=== PATIENT | female | born 1940 | race Caucasian/White ===

== ENCOUNTER 2018-12-01 06:21 | Day surgery (SDC) | payer MEDICARE, OTHER ==
[~2018-12-01] VITALS: Ht 167.6 cm; Wt 70.5 kg
[2018-12-01 06:47] LABS: HEMATOCRIT 34.9 % (36.0-48.0); HEMOGLOBIN 11.5 g/dL (12-16); MCH 30.7 pg (26.0-34.0); MCV 93.3 fL (80.0-100.0); MEAN PLATELET VOLUME 10.1 fL (7.4-10.4); RBC 3.74 10x6/uL (4.00-5.40); RDW 14.8 % (11.5-14.5); WBC 9.7 10x3/uL (4.8-10.8)
[2018-12-01] MEDS ORDERED: OMEPRAZOLE20 M1 PO (07:14)
[2018-12-01] MEDS ORDERED: KENALOG 0.1 % 115 GM TOPICAL (07:14)
[2018-12-01] MEDS ORDERED: LEXAPRO20 MG PO (07:14)
[2018-12-01] MEDS ORDERED: ZYLOPRIM100 MG PO (07:16)
[2018-12-01 07:39] VITALS: BP 131/68; Ht 167.6 cm; Wt 70.5 kg
--- NOTE | 2018-12-01 08:22 | NUR ---
0822-DILATE ESOPHAGUS WITH 18-20 CRE BALLOON.
--- NOTE | 2018-12-01 09:30 | NUR ---
0821 DR. BECCA POZO.
--- NOTE | 2018-12-01 09:39 | NUR ---
1649 DC INSTS REVIEWED VOICED UNDERSTANDING RELEASED IN WC WITH ESCORT.
--- NOTE | 2018-12-01 17:26 | OP ---
PATIENT NAME: SHO GUTHRIE MEDICAL RECORD: [id number] :39 LOCATION:[facility] ADMISSION DATE: SURGEON: KASIA HUDSON DO DATE OF OPERATION: 12/01/2018 PROCEDURE: EGD with balloon dilation and biopsies. INDICATIONS FOR PROCEDURE: Possible history of achalasia, dysphagia, heartburn. SCOPE: Olympus video gastroscope. MEDICATIONS: Propofol 200 mg IV per anesthesia. ESTIMATED BLOOD LOSS: Minimal. COMPLICATIONS: None. FINDINGS AND DESCRIPTION OF PROCEDURE: Informed consent was given. The patient was made comfortable with the above medication. After reaching an adequate level of sedation by slow IV push, the patient was placed on her left side. The endoscope was advanced under direct visualization through the mouth to the second portion of the duodenum with ease. The upper and middle thirds of the esophagus appeared normal. In the distal esophagus, there was evidence of LA class A reflux-induced esophagitis and a Schatzki's ring just proximal to a large mixed sliding and paraesophageal hernia, which measured approximately 9 cm in length. Involved with this hernia, there was a significant amount of food caught within the hernia itself and refluxing up into the esophagus. The endoscope was advanced beyond the hernia into the stomach, which appeared normal down to the antrum and pylorus. Random cold forceps biopsies were taken to submit for histopathology and to rule out the presence of H. pylori. The endoscope was advanced beyond the pylorus into the duodenum, which appeared normal down to the second portion. The endoscope was then withdrawn back into the stomach and an 18-20 mm CRE dilating balloon was placed through the working channel. The endoscope was withdrawn into the esophagus and the balloon was placed across the Schatzki's ring. It was dilated up to 20 mm maximum diameter successfully. The endoscope was then withdrawn from the patient. The patient tolerated the procedure well and there were no complications. IMPRESSION: 1. LA class A reflux-induced esophagitis. 2. Schatzki's ring located at the GE junction, proximal to a hiatal hernia, dilated to 20 mm successfully. 3. Approximately 9 cm mixed hiatal hernia with significant food retention. PLAN AND RECOMMENDATIONS: 1. Discharge home when recovery parameters are met. 2. Follow up biopsy specimen results. 3. GERD diet and reflux precautions. 4. Continue current medications including omeprazole 20 mg daily. 5. We will discuss options with the patient regarding possible manometry to confirm or disprove the presence of achalasia and considerations of hiatal hernia repair surgically. TRANSINT:[id number] Voice Confirmation ID: [id number] DOCUMENT ID: [id number] OPERATIVE REPORT [id number] SHO GUTHRIE,KASIA Masters DO at 1726 CC: [id number] DICTATION DATE: 12/01/18 0832 GAS WELL DRILLING MANAGER: 12/01/18 0850 [facility] 12/01/18 [id number] [place] [address]
== END 2018-12-01 09:38 | disposition home or self-care (01) ==
LOC: D.OPS 06:21
PROVIDERS: Anesthesiology; ATTEND Internal Medicine Gastroenterology
DX: K21.0 Gastro-esophageal reflux disease with esophagitis (principal); K22.2 Esophageal obstruction; K44.9 Diaphragmatic hernia without obstruction or gangrene; Z01.812 Encounter for preprocedural laboratory examination

== ENCOUNTER → 2018-12-30 09:11 | Outpatient (CLI) | payer MEDICARE, OTHER ==
[2018-12-01 07:39] VITALS: BMI 25.0
[~2018-12-30 09:11] MED LIST: BUPROPION HCL150 M1; HYDROCODON-ACE1 EAC7 PO; KENALOG 0.1 % 115 GM TOPICAL; LEXAPRO20 MG PO; OMEPRAZOLE20 M1 PO; ZYLOPRIM100 MG PO
== END | disposition home or self-care (01) ==
LOC: D.OPS 09:11
PROVIDERS: ATTEND Surgery
DX: K44.9 Diaphragmatic hernia without obstruction or gangrene (principal)

== ENCOUNTER 2019-01-11 08:24 | Day surgery (SDC) | payer MEDICARE, OTHER ==
[~2019-01-11] VITALS: Ht 170.2 cm; Wt 70.5 kg
[2019-01-11] VITALS (8 sets, daily range): BP systolic 112–133; BP diastolic 69–75; Ht 170.2 cm; Wt 70.5 kg
[~2019-01-11 08:24] MED LIST changes: -HYDROCODON-ACE1 EAC7 PO
[2019-01-11 08:45] LABS: BASOPHILS 1.3 % (0-2); EOSINOPHILS 8.2 % (0-7); HEMATOCRIT 33.4 % (36.0-48.0); HEMOGLOBIN 11.2 g/dL (12-16); IMMATURE GRANULOCYTES 0.1 % (0-5); LYMPHOCYTES 28.2 % (15-50); MCH 31.3 pg (26.0-34.0); MCHC 33.5 g/dL (31.0-37.0); MCV 93.3 fL (80.0-100.0); MEAN PLATELET VOLUME 9.8 fL (7.4-10.4); MONOCYTES 9.9 % (2-11); NEUTROPHILS 52.3 % (40-80); PLATELET COUNT 284 10x3/uL (130-400); RBC 3.58 10x6/uL (4.00-5.40); RDW 14.5 % (11.5-14.5); WBC 8.5 10x3/uL (4.8-10.8)
[2019-01-11 08:52] LABS: ANION GAP 10.9 mmol/L (8-16); CALCIUM 9.5 mg/dL (8.5-10.1); CARBON DIOXIDE 30.8 mmol/L (21.0-32.0); CREATININE - SERUM 1.1 mg/dL (0.6-1.3); POTASSIUM - SERUM 4.7 mmol/L (3.5-5.1)
--- NOTE | 2019-01-11 13:30 | NUR ---
ASSESSMENT PER FLOW SHEET. PT FROM PACU VIA BED.PT STATES PAIN 10/10 TO EPIGASTRIC REGION AND IS VERY ANXIOUS.PAIN MEDS PER MAR.ORIENTATION TO ROOM WITH FAMILY.CALL LIGHT IN REACH
--- NOTE | 2019-01-11 17:47 | NUR ---
PAIN CONTROLLED STILL SOME WHAT SEDATED. GLOBAL ACCOUNT MANAGER ON HOLD PER SAFETY PROTOCOL WITH ENTITLED C02 MONITOR,DECREASED RESP,SATS 99 ON 23 LITERS PER NASAL CANULA.
--- NOTE | 2019-01-11 20:00 | NUR ---
ASSESSMENT PER FLOWSHEET. ABDOMINAL LAP SITE X5 C/D/I. EYES CLOSED RESPIRATIONS WITH EASE AND UNLABORED. IV PATENT RT HAND OF NS AT 100CC'S/HR SITE CLEAR.MOSAIC TILER OF DILAUDID SET UP WITH SETTINGS AT 0.2MG Q10MIN WITH 4MG Q4HR L/O PATIENT REMAINS SEDATED WILL AROUSE TO VERBAL STIMULATION. O2 ON 2L/M PER NC O2 SATS RUNNING 95-98% SR UP X2 CALL LIGHT WITHIN REACH. REMAINS NPO AT THIS TIME. NICOLE MAT ON SCD'S ON.
--- NOTE | 2019-01-11 22:00 | NUR ---
CONTINUE TO MONITOR VS AND O2 SATS.
--- NOTE | 2019-01-12 | NUR ---
PLACED ON BEDPAN NO VOID.
[2019-01-12 00:30] VITALS: BP 132/75
[2019-01-12 00:41] VITALS: BP 120/75
--- NOTE | 2019-01-12 01:15 | NUR ---
PLACED ON BEDPAN VOIDED 250CC'S YELLOW URINE.
[2019-01-12 04:35] VITALS: BP 110/61
--- NOTE | 2019-01-12 05:00 | NUR ---
SHERINE CLOSED RESPIRATIONS WITH EASE AND UNLABORED.
[2019-01-12 06:56] LABS: BASOPHILS 0.3 % (0-2); EOSINOPHILS 0 % (0-7); HEMATOCRIT 29.5 % (36.0-48.0); HEMOGLOBIN 9.7 g/dL (12-16); IMMATURE GRANULOCYTES 0.3 % (0-5); LYMPHOCYTES 12.2 % (15-50); MCH 31.4 pg (26.0-34.0); MCHC 32.9 g/dL (31.0-37.0); MEAN PLATELET VOLUME 10.7 fL (7.4-10.4); MONOCYTES 12.2 % (2-11); PLATELET COUNT 271 10x3/uL (130-400); RBC 3.09 10x6/uL (4.00-5.40)
[2019-01-12 07:11] LABS: MCV 95.5 fL (80.0-100.0); WBC 11.4 10x3/uL (4.8-10.8)
[2019-01-12 07:13] LABS: ANION GAP 11.4 mmol/L (8-16); CALCIUM 8.4 mg/dL (8.5-10.1); CARBON DIOXIDE 30.5 mmol/L (21.0-32.0); POTASSIUM - SERUM 4.9 mmol/L (3.5-5.1)
--- NOTE | 2019-01-12 08:12 | NUR ---
TO XRAY PER WC.
[2019-01-12 08:28] VITALS: BP 132/60
--- NOTE | 2019-01-12 08:30 | NUR ---
PATIENT BACK TO ROOM AND RECONNECTED TO STAKEHOLDER MANAGER AND IVF. IV INTACT. NO COMPLAINTS OR SIGNS OF DISTRESS AT THIS TIME. FAMILY AT BEDSIDE. CALL LIGHT WITHIN REACH. BSCDS ON AND WORKING.
[2019-01-12] MEDS ORDERED: HYDROCODON-ACE1 EAC7 PO (11:56)
[2019-01-12 12:37] VITALS: BP 130/69
--- NOTE | 2019-01-12 13:00 | NUR ---
PATIENT IN BED WITH IV INTACT. NO COMPLAINTS OR SIGNS OF DISTRESS. TOLERATED FULL LIQUIDS WITH NO N/V. FAMILY AT BEDSIDE. CALL LIGHT WITHIN REACH.
--- NOTE | 2019-01-12 14:00 | NUR ---
PATIENT IV REMOVED WITH CATH TIP INTACT. O2 REMOVED. EXPLAINED TO PATIENT THAT WE WOULD AMBULATE IN ROSE WHEN PAIN PILL BEGINS TO WORK. VERBALIZED UNDERSTANDING. NO QUESTIONS AT THIS TIME. CALL LIGHT WITHIN REACH.
--- NOTE | 2019-01-12 15:10 | NUR ---
PATIENT SATS 92-94 % AFTER AMBULATING WITH NO O2 . PATIENT DOES NOT USE O2 AT HOME. O2 LEFT OFF.
--- NOTE | 2019-01-12 15:11 | NUR ---
PATIENT AMBULATING IN ROSE WITH PIPE RECOVERY SPECIALIST AND DAUGHTER.
--- NOTE | 2019-01-12 15:20 | NUR ---
DISCHARGE INSTRUCTIONS GIVEN TO PATIENT. VERBALIZED UNDERSTANDING. NO QUESTIONS AT THIS TIME. PRESCRIPTION GIVEN TO PATIENT. PATIENT FAMILY AT SIDE. WAITING FOR WC FOR DC.
--- NOTE | 2019-01-25 10:07 | OP ---
PATIENT NAME: SHO GUTHRIE MEDICAL RECORD: [id number] :39 LOCATION:[facility] ADMISSION DATE: SURGEON: MIKEY GR MD DATE OF OPERATION: 01/11/2019 PREOPERATIVE DIAGNOSES: 1. Paraesophageal hernia. 2. Esophageal dysmotility. 3. Hypercholesterolemia. 4. Gout. POSTOPERATIVE DIAGNOSES: 1. Paraesophageal hernia. 2. Esophageal dysmotility. 3. Hypercholesterolemia. 4. Gout. PROCEDURES: 1. Laparoscopic lysis of adhesions. 2. Laparoscopic paraesophageal hernia repair. 3. Laparoscopic gastropexy. SURGEON: Mikey Gr MD REPORT OF PROCEDURE: The patient's abdomen was prepped and draped in sterile fashion. A Veress needle was inserted in the left upper quadrant and the abdomen was insufflated. Under direct visualization, an 11 mm Visiport trocar was inserted in the midline above the umbilicus. We could see the Veress needle and there was no sign of any injury to bowel or surrounding structures. The 11-mm trocar was then placed in the left subcostal region, a 5-mm trocar was placed in the epigastrium, a 5-mm trocar was placed in the right lateral abdomen, and a final 5-mm trocar was placed in the left lateral abdomen. We took down some adhesions of the omentum to the midline of the abdomen using Harmonic scalpel. Once this was done, we were able to insert a liver retractor and elevate the left lobe of the liver. There were a lot of old scar tissue and adhesions present in the left upper quadrant. These were taken down carefully using Harmonic scalpel. We continued our dissection on the lesser curvature of the stomach and took down these adhesions as we approached the right skyler. The adhesions got very dense, we decided to just go to the greater curvature of the stomach and began our dissection further there. We took down a few short gastrics, but a lot of these had already been removed. As we continued our dissection, we could see there was a large hiatal hernia and any time it was released, it was allowing the stomach to go back up into the thoracic cavity. Approximately the top third of the stomach was in the thoracic cavity. We began our dissection taking down the peritoneum on the left side of the right skyler. As we did this, we were able to start freeing up the attachments on the thoracic cavity. There were a large amount of adhesions present throughout and as we began our dissection up in the chest, we could see there were some sutures present on the posterior aspect of the esophageal hiatus and also on the anterior aspect of the stomach. We eventually were able to free up these adhesions on the left side and get into the thoracic cavity into what was normal appearing spider web type adhesions. As we continued this dissection, we began moving towards the right side. Again, dense adhesions were present. We eventually were able to take these down using Harmonic scalpel. The patient had a partial wrap that was present with some sutures anteriorly. The wrap was very OPERATIVE REPORT [id number] SHO GUTHRIE loose and appeared to be out of position. This wrap was just taken down using Harmonic scalpel. At this point, we had the stomach laid out in its normal anatomic fashion. The esophagus itself appeared normal other than it was mildly dilated. At the conclusion of the dissection, we had about 3-4 cm of esophagus that was resting comfortably in the abdomen under no tension. We inspected the intrathoracic esophagus and I did not see any evidence of an injury. The esophageal hiatus was then reapproximated with interrupted 0 Polydeks times 2. A gastropexy was then performed of the anterior aspect of the body of the stomach to the anterior abdominal wall using an 0 polydek suture. At this point, the ports and insufflation were then removed and there was no sign of any bleeding. The liver retractor was removed. The 11-mm trocar site fascias were closed with interrupted 0 Vicryls using a Shan-Lex suture passer device. The wounds were then infused with a total of 20 mL of 0.25% Marcaine with epinephrine and then closed with subcutaneous 5-0 Monocryl. COMPLICATIONS: None. CONDITION: Stable. ANESTHESIA: General endotracheal and local. BLOOD LOSS: Minimal. TRANSINT:[id number] Voice Confirmation ID: [id number] DOCUMENT ID: [id number] MIKEY GR MD at 1007 CC: CRYS MORENO MD [id number] DICTATION DATE: 01/11/19 1240 PLATE CLEANER: 01/11/19 1252 [facility] 01/12/19 [address] [place] [address]
== END 2019-01-12 15:45 | disposition home or self-care (01) ==
LOC: D.OPS 08:24 → D.PAN 10:45 → D.OPS 10:45 → D.MS 13:08 → D.OPS 01-12 15:45
PROVIDERS: ATTEND Surgery
DX: K44.9 Diaphragmatic hernia without obstruction or gangrene (principal); K22.4 Dyskinesia of esophagus; E78.00 Pure hypercholesterolemia, unspecified; M10.9 Gout, unspecified

== ENCOUNTER 2019-07-04 06:48 | Day surgery (SDC) | payer MEDICARE, OTHER ==
[~2019-07-04] VITALS: Ht 167.6 cm; Wt 72.7 kg
[~2019-07-04 06:48] MED LIST changes: +HYDROCODON-ACE1 EAC7 PO
[2019-07-04 07:17] LABS: EOSINOPHILS 4.7 % (0-7); HEMATOCRIT 34.9 % (36.0-48.0); HEMOGLOBIN 11.4 g/dL (12-16); IMMATURE GRANULOCYTES 0.2 % (0-5); LYMPHOCYTES 28.4 % (15-50); MCH 31.1 pg (26.0-34.0); MCHC 32.7 g/dL (31.0-37.0); MCV 95.4 fL (80.0-100.0); MEAN PLATELET VOLUME 9.9 fL (7.4-10.4); MONOCYTES 10.9 % (2-11); NEUTROPHILS 54.8 % (40-80); PLATELET COUNT 302 10x3/uL (130-400); RBC 3.66 10x6/uL (4.00-5.40); RDW 13.8 % (11.5-14.5); WBC 8.2 10x3/uL (4.8-10.8)
[2019-07-04 07:30] LABS: ANION GAP 10.1 mmol/L (8-16); CARBON DIOXIDE 25.9 mmol/L (21.0-32.0); CREATININE - SERUM 1.1 mg/dL (0.6-1.3)
[2019-07-04 07:50] VITALS: BP 129/70; Ht 167.6 cm; Wt 72.7 kg
--- NOTE | 2019-07-04 10:43 | NUR ---
2720 PT ARRIVED IN ROOM 2519 AFTER COLONOSCOPY. STATES SHE HAS SOME DISCOMFORT IN HER ABDOMEN. STATES SHE IS ONLY SLIGHTLY NAUSEATED AFTER RECEIVING ZOFRAN IN PROCEDURE ROOM 1017 PT STATES SHE FEELS GOOD. NO NAUSEA. ABDOMEN LESS SORE. WANTS IV DC'D. IV REMOVED. CATHETER TIP INTACT. NO BLEEDING AT SITE. BANDAID APPLIED.
--- NOTE | 2019-07-04 16:48 | OP ---
PATIENT NAME: SHO GUTHRIE MEDICAL RECORD: [id number] :39 [facility]: SURGEON: KASIA HUDSON DO DATE OF OPERATION: 07/04/2019 PROCEDURE: Colonoscopy with polypectomy and biopsies. INDICATIONS FOR PROCEDURE: Lower abdominal pain and change in bowel habits. SCOPE: Olympus video pediatric colonoscope. MEDICATIONS: Propofol 300 mg IV per anesthesia. WITHDRAWAL TIME: 12 minutes. ESTIMATED BLOOD LOSS: Minimal. COMPLICATIONS: None. FINDINGS: Informed consent was given. The patient was made comfortable with the above medication. After reaching an adequate level of sedation by slow IV push, the patient was placed on her left side. A digital rectal examination was performed and was normal. The endoscope was advanced under direct visualization through the rectum to the cecum, confirmed by the presence of the appendiceal orifice and ileocecal valve. The endoscope briefly intubated the terminal ileum, which appeared normal. It was then withdrawn and the mucosa was carefully examined. The prep quality was good. There was a single benign-appearing sessile polyp located in the transverse colon, which measured approximately 3 mm in diameter. It was removed using hot forceps. There was evidence of moderate diverticulosis involving the sigmoid colon, which made passage of the endoscope slightly difficult. Some counterpressure was applied without any further difficulties passing the endoscope. In the rectum, there were some minor changes consistent with proctitis, which included erythema and friability and some slight congestion. This could be prep related. Two cold forceps biopsies were taken from the site to submit for histopathology. There were also random biopsies taken throughout the normal-appearing colon to rule out the presence of microscopic colitis. Retroflexion was not possible due to a small and shallow rectal vault. The endoscope was withdrawn from the patient. The patient tolerated the procedure well, and there were no complications. IMPRESSION: 1. Moderate diverticulosis of the sigmoid colon. 2. A single benign-appearing transverse polyp, removed using hot forceps. 3. Proctitis, which may or may not be related to the prep. Biopsies taken. PLAN AND RECOMMENDATIONS: 1. Discharge home when recovery parameters are met. 2. Follow up biopsy specimen results. 3. High fiber diet and supplement diet with Metamucil as already prescribed. 4. Continue current medications. 5. Follow up in GI clinic in 1 month. 6. Interventions in the meantime will be dependent on results of biopsy specimens. 7. No further colonoscopies are necessary based on the patient's age. OPERATIVE REPORT [id number] JERRITINOSHOCATRACHO SHARMA TRANSINT:[id number] Voice Confirmation ID: [id number] DOCUMENT ID: [id number] KASIA HUDSON DO at 1648 CC: [id number] DICTATION DATE: 07/04/19 0939 JACK TAMP OPERATOR: 07/04/19 1127 [facility] 07/04/19 [id number] [place] [address]
== END 2019-07-04 10:28 | disposition home or self-care (01) ==
LOC: D.OPS 06:48
PROVIDERS: Anesthesiology; ATTEND Internal Medicine Gastroenterology
DX: R19.4 Change in bowel habit (principal); R10.9 Unspecified abdominal pain

== ENCOUNTER 2019-09-28 10:06 | Day surgery (SDC) | payer MEDICARE, OTHER ==
[~2019-09-28] VITALS: Ht 167.6 cm; Wt 72.7 kg
--- NOTE | ~2019-09-28 | OP ---
PATIENT NAME: SHO GUTHRIE MEDICAL RECORD: [id number] :39 [facility] AD[facility] DATE: SURGEON: KASIA HUDSON DO DATE OF OPERATION: 09/28/2019 PROCEDURE: EGD with biopsies. INDICATIONS FOR PROCEDURE: Dysphagia, GERD, nausea and vomiting. SCOPE: Olympus video gastroscope. MEDICATIONS: Propofol 100 mg IV per anesthesia. ESTIMATED BLOOD LOSS: Minimal. COMPLICATIONS: None. FINDINGS: Informed consent was given. The patient was made comfortable with the above medication. After reaching an adequate level of sedation by slow IV push, the patient was placed on her left side. The endoscope was advanced under direct visualization through the mouth to the second portion of the duodenum. The esophagus appeared normal down to the GE junction. At the GE junction, there were reflux changes consistent with LA class C, reflux-induced esophagitis. The endoscope was advanced beyond the GE junction into the stomach where the significant food retention was encountered. The entire stomach was filled with food. Retroflexion was able to be performed. There was a prior fundoplication which appeared intact. The endoscope was able to traverse throughout the stomach down to the pylorus, which was patent. The endoscope was advanced through the pylorus into the duodenum, which appeared normal. The endoscope was then withdrawn back into the stomach. A quick cold forceps biopsy was taken to submit for histopathology and to rule out H. pylori and the endoscope was withdrawn from the patient. The patient tolerated the procedure well and there were no complications. IMPRESSION: 1. LA class C, reflux-induced esophagitis. 2. Evidence of a prior fundoplication. 3. Significant food retention in the stomach. PLAN AND RECOMMENDATIONS: 1. Discharge home when recovery parameters are met. 2. Follow up biopsy specimen results. 3. Increase Dexilant to 60 mg daily. 4. Gastric emptying scan to rule out gastroparesis in light of endoscopic findings and symptoms, which are consistent with gastroparesis. 5. If the study is abnormal, consider a short trial of Reglan versus referral for gastric pacemaker. 6. Follow up in GI clinic in three weeks. TRANSINT:[id number] Voice Confirmation ID: [id number] DOCUMENT ID: [id number] OPERATIVE REPORT [id number] SHO GUTHRIE KASIA HUDSON DO CC: [id number] DICTATION DATE: 09/28/19 1312 GOVERNMENT DOCUMENTS LIBRARIAN: 09/29/19 0022 [facility] [place] 09/28/19 [facility] [address] [place] [address]
[2019-09-28 10:40] LABS: EOSINOPHILS 6.1 % (0-7); HEMATOCRIT 37.3 % (36.0-48.0); HEMOGLOBIN 11.6 g/dL (12-16); IMMATURE GRANULOCYTES 0.5 % (0-5); LYMPHOCYTES 21.8 % (15-50); MCH 30.4 pg (26.0-34.0); MCHC 31.1 g/dL (31.0-37.0); MCV 97.9 fL (80.0-100.0); MEAN PLATELET VOLUME 9.6 fL (7.4-10.4); MONOCYTES 10.9 % (2-11); NEUTROPHILS 59.7 % (40-80); PLATELET COUNT 331 10x3/uL (130-400); RBC 3.81 10x6/uL (4.00-5.40); RDW 13.7 % (11.5-14.5); WBC 8.6 10x3/uL (4.8-10.8)
[2019-09-28 10:49] LABS: ALBUMIN 3.4 g/dL (3.4-5.0); ANION GAP 9.4 mmol/L (8-16); BILIRUBIN - TOTAL 0.49 mg/dL (0.2-1.3); CARBON DIOXIDE 28.5 mmol/L (21.0-32.0); CREATININE - SERUM 1.1 mg/dL (0.6-1.3); POTASSIUM - SERUM 4.9 mmol/L (3.5-5.1); PROTEIN - SERUM 7.2 g/dL (6.4-8.2)
[2019-09-28] MEDS ORDERED: CYCLOBENZAPRINE5 MG PO (10:59)
[2019-09-28] MEDS ORDERED: DEXILANT30 MG PO (10:59)
[2019-09-28] MEDS ORDERED: ACETAMINOPHEN325 MG PO (11:00)
[2019-09-28 11:14] VITALS: BP 125/69; Ht 167.6 cm; Wt 72.7 kg
== END 2019-09-28 14:10 | disposition home or self-care (01) ==
LOC: D.OPS 10:06
PROVIDERS: Anesthesiology; ATTEND Internal Medicine Gastroenterology
DX: R13.10 Dysphagia, unspecified (principal); K21.9 Gastro-esophageal reflux disease without esophagitis; R11.2 Nausea with vomiting, unspecified; K22.0 Achalasia of cardia; R12 Heartburn

== ENCOUNTER → 2019-09-30 11:14 | Outpatient (CLI) | payer MEDICARE, OTHER ==
[2019-09-28 11:14] VITALS: BMI 25.8
[~2019-09-30 11:14] MED LIST changes: +ACETAMINOPHEN325 MG PO; +CYCLOBENZAPRINE5 MG PO; +DEXILANT30 MG PO
== END | disposition home or self-care (01) ==
LOC: D.NM 11:14
PROVIDERS: ATTEND Internal Medicine Gastroenterology
DX: R10.9 Unspecified abdominal pain (principal); R11.2 Nausea with vomiting, unspecified; R68.81 Early satiety